=== PATIENT | female | born 1985 | race Caucasian/White ===

== ENCOUNTER 2019-01-25 08:20 | Inpatient (IN) | payer BC ==
[2019-01-25 09:10] VITALS: BMI 23.3
[2019-01-25] MEDS ORDERED: hydrALAZINE 20 MG/ML VIAL SLOW IVP PRN ×3 (09:30→23:57)
--- NOTE | 2019-01-25 09:32 | PDOC.LDHP ---
Labor and Delivery H&P Chief complaint: contractions, loss of fluid HPI: Patient of Dr Randall Time of bedside eval: 0930 CC: possible LOF this AM 33 yo at 37.2 weeks here for above CC. No VB, good FM, no fevers. No CHOWDARY, no Visyual changes, no epigrastric SXS Review of Systems: complete ROS completed and as per HPI only Current gestational age (weeks): 37 (2 days) Dating criteria: last menstrual period Grav: 2 Para: 1 OB History Details: Current complications: none Abnormal US findings: No Past Medical History: None Current medications: pre-brandy vitamins Previous surgical history: none Allergies/Adverse Reactions: Allergies Allergy/AdvReac Type Severity Reaction Status Date / Time No Known Drug Allergies Allergy Verified 01/25/19 09:07 - Physical Exam Abnormal vital signs: 120/90, 140/90s General: NAD Heart: RRR FHT: category 1 [place] contractions every: every 7-10 irregular - Vaginal Exam cm dilated: 2 (to 3 per RN) Effacement: 75% Station: -1 - Assessment Early term, GBS neg, here for possible LOF. SSE performed by me at bedside: After reviewing the procedure with her, SSE performed: no VB, I cannot definitely say that she is NOT ruptured..small claer fluid in post fornix but no loss per os with maneuvers. BPs are MILD hypertension, so we will admit for suspected PROM and mild PIH - Plan Plan: admit to L&D, labor augmentation if indicated, informed consent obtained, anesthesia consult for pain management, other (Contact and notify Tonia. Draw CMP and UP/UCr. Hold off on Mag for now.)
[2019-01-25] MEDS ORDERED: Lidocaine 1% (PF) 30 ML VIAL SC PRN (09:42)
[2019-01-25] MEDS ORDERED: Ondansetron PF 4 MG/2 ML Vial IVP PRN ×3 (09:42→23:57)
[2019-01-25] MEDS ORDERED: Butorphanol Tartrate 1 MG/ML VIAL SLOW IVP PRN (09:42)
[2019-01-25] MEDS ORDERED: Promethazine HCl 25 MG/ML VIAL IM PRN ×3 (09:42→23:57)
[2019-01-25] MEDS ORDERED: Ibuprofen 800 MG TAB PO PRN (09:42)
[2019-01-25] MEDS ORDERED: HYDROcodone/Acetaminophen 5/325 mg Tablet PO PRN ×4 (09:42→23:57)
[2019-01-25] MEDS ORDERED: Bupivacaine/Epinephrine 0.25% 30 ML VIAL ONE (10:00)
[2019-01-25 10:57] LABS: Hemoglobin 11.6 g/dL (12.0-16.0); Mean Corpuscular HGB CONC 34.2 g/dL (32.0-36.0); Mean Corpuscular Hemoglobin 33.3 pg (27.0-31.0); Mean Corpuscular Volume 97.5 fL (78.0-98.0); Mean Platelet Volume 7.3 fL (7.4-10.4); Platelet Count 211 thou/uL (130-400); RBC Distribution Width 11.8 % (11.5-14.5); Red Blood Cell (RBC) Count 3.48 mill/uL (4.20-5.40); White Blood Cell (WBC) Count 7.2 thou/uL (4.8-10.8)
[2019-01-25] MEDS ORDERED: NS w/ Oxytocin 10 units 500 ML ONE (11:12)
[2019-01-25 11:20] LABS: ALT (SGPT) 16 U/L (8-55); AST (SGOT) 21 U/L (5-34); Alkaline Phosphatase 208 U/L (40-110); Anion Gap 11 mmol/L (10-20); BUN (Urea Nitrogen) 8 mg/dL (7.0-18.7); Bilirubin, Total 0.3 mg/dL (0.2-1.2); Calc. Creatinine Clearance 115 mL/min (70-130); Calcium 8.3 mg/dL (7.8-10.44); Carbon Dioxide 20 mmol/L (22-29); Chloride 107 mmol/L (98-107); Estimated GFR-MDRD Greater than 90; Glucose 71 mg/dL (70-105); Potassium 3.9 mmol/L (3.5-5.1); Sodium 134 mmol/L (136-145)
[2019-01-25 11:25] LABS: Creatinine, Urine Less than 20.00 mg/dL (47-110); Protein, Urine Random Quant Less than 10 mg/dL (1-14)
[2019-01-25] MEDS: Lactated Ringer's 1,000 ML IV SCH ×2 (11:26→17:21)
[2019-01-25 11:37] LABS: HBSAg Index 0.18 S/CO (0-0.99); HIV (1/2) Antibody/Antigen Non-Reactive (NonReactive); HIV 1/2 INDEX 0.08 S/CO (<1.00); Hep B Surf Ag Non-Reactive S/CO (NonReactive); Syphilis Antibody Nonreactive (Nonreactive); Syphilis Antibody Index 0.05 S/CO (<1.00 Non-Reactive)
[2019-01-25] MEDS ORDERED: Fentanyl 4 mcg/Bup 0.1% Cadd 100 ML ONE (15:46)
[2019-01-25] MEDS ORDERED: Lactated Ringer's 500 ML IV PRN (16:26)
[2019-01-25] MEDS ORDERED: Naloxone HCl 0.4 mg/ml Vial IVP PRN ×2 (16:26)
[2019-01-25] MEDS ORDERED: diphenhydrAMINE 50 MG/ML VIAL IVP PRN (16:26)
[2019-01-25] MEDS ORDERED: Acetaminophen 325 MG TAB PO PRN (16:26)
[2019-01-25] MEDS ORDERED: ePHEDrine/0.9% NaCl/PF SYRINGE 50 mg/10 ml SLOW IVP PRN (16:26)
[2019-01-25] MEDS ORDERED: Fentanyl 4 mcg/Bupivacaine 0.1% Cassette 100 ML EPIDURAL SCH (16:30)
[2019-01-25] MEDS ORDERED: Communication Order-Pharmacy FS SCH (16:30)
[2019-01-25] MEDS: NS / Oxytocin 40 units/1000ml 1,000 ML IV PRN ×2 (19:07→21:08)
[2019-01-25] MEDS ORDERED: Ibuprofen 800 MG TAB PO SCH (23:30)
[2019-01-25] MEDS ORDERED: Methylergonovine 0.2 MG/ML VIAL IM PRN (23:57)
[2019-01-25] MEDS ORDERED: Misoprostol 200 MCG TAB VAG PRN (23:57)
[2019-01-25] MEDS ORDERED: Milk Of Magnesia 30 ML UDCUP PO PRN (23:57)
[2019-01-25] MEDS ORDERED: Bisacodyl 10 MG SUPP PR PRN (23:57)
[2019-01-25] MEDS ORDERED: Lanolin Ointment 7 GM TUBE TOP PRN (23:57)
[2019-01-25] MEDS ORDERED: diphenhydrAMINE 25 MG CAP PO PRN (23:57)
[2019-01-25] MEDS ORDERED: Benzocaine-Menthol 82.5 ML CAN TOP PRN (23:57)
[2019-01-25] MEDS ORDERED: NS / Oxytocin 40 units/1000ml 1,000 ML IV SCH (23:57)
[2019-01-25] MEDS ORDERED: Zolpidem Tartrate 5 MG TAB PO PRN (23:57)
[2019-01-25] MEDS ORDERED: Preparation H Ointment 28 GM TUBE PR PRN (23:57)
[2019-01-26] MEDS ORDERED: Ibuprofen 800 MG TAB PO SCH (06:00)
[2019-01-26 07:37] LABS: Hemoglobin 10.1 g/dL (12.0-16.0); Mean Corpuscular HGB CONC 34.9 g/dL (32.0-36.0); Mean Corpuscular Hemoglobin 33.9 pg (27.0-31.0); Mean Corpuscular Volume 97.1 fL (78.0-98.0); Platelet Count 182 thou/uL (130-400); RBC Distribution Width 11.7 % (11.5-14.5); Red Blood Cell (RBC) Count 2.98 mill/uL (4.20-5.40)
[2019-01-26] MEDS: Ibuprofen 800 MG TAB PO SCH ×2 (08:40→17:03)
[2019-01-26] MEDS: Ferrous Sulfate 325 MG TAB PO SCH ×2 (08:40→17:04)
[2019-01-26] MEDS ORDERED: Docusate Calcium (SURFAK) 240 MG CAP PO SCH (09:00)
[2019-01-26] MEDS ORDERED: Prenatal Vitamin 1 TAB PO SCH (09:00)
--- NOTE | 2019-01-26 12:42 | PDOC.PP ---
Post Progress Note Post Day #: 1 PO intake tolerated: yes Flatus: yes Ambulation: yes Vital Signs (12 hours) Temp Pulse Resp BP 01/26/19 12:13 97.1 F L 72 16 128/68 01/26/19 08:00 97.4 F L 01/26/19 07:55 66 16 118/73 01/26/19 04:20 60 18 139/71 Weight Weight 132 lb - Physical Examination General: NAD Cardiovascular: no m/r/g, RRR Respiratory: clear to auscultation bilaterally Abdominal: + bowel sounds, lochia Extremities: negative homans (B) Neurological: no gross focal deficits Psychiatric: A&Ox3, normal affect (DC to home) Result Diagrams: 01/26/19 07:28 01/25/19 10:47 Additional Labs: Post Labs Blood Type O POSITIVE 01/25/19 11:23 Hep Bs Antigen Non-Reactive S/CO (NonReactive) 01/25/19 10:47
[2019-01-26 20:32] VITALS: BP 139/83; TEMP 97.8
[2019-01-27] MEDS ORDERED: Measles/Mumps/Rubella 10 MCG/0.5 ML VIAL SC ONE (09:00)
[2019-01-27] MEDS ORDERED: Varicella virus, LIVE 0.5 ML VIAL SC ONE (09:00)
[2019-01-27] MEDS ORDERED: Adacel (T-DAP) 0.5 ML SYRINGE IM ONE (09:00)
== END 2019-01-26 21:15 | disposition home or self-care (01) | DRG 807 ==
LOC: L&D/OP 08:20 → L&D 11:44 → 3SW 22:48
PROVIDERS: ADMIT Obstetrics & Gynecology; ATTEND Obstetrics & Gynecology
PROC: 10E0XZZ Delivery of Products of Conception, External Approach (ICD-10-PCS; principal; 2019-01-25)
DX: O13.4 Gestational [pregnancy-induced] hypertension without significant proteinuria, complicating childbirth (principal); Z37.0 Single live birth; Z3A.37 37 weeks gestation of pregnancy
CPT/HCPCS: 36415; 80053; 82570; 84156; 85027; 86780; 86850; 86900; 86901; 87340; 87389; J2590